=== PATIENT | female | born 1950 | race Two or more races ===

== ENCOUNTER 2017-06-15 08:49 | Outpatient (CLI) | payer OTHER | END 2017-06-15 09:10 | disposition home or self-care (01) | LOC: SONOGRAMA 08:49 | DX: E04.1 Nontoxic single thyroid nodule (principal) ==

== ENCOUNTER 2019-05-01 12:52 | Emergency (ER) | payer OTHER ==
[~2019-05-01] VITALS: Ht 160 cm; Wt 60.8 kg
[2019-05-01] MEDS ORDERED: ATACAND16 MG PO (13:30)
== END 2019-05-01 20:45 | disposition home or self-care (01) ==
LOC: ER 12:52
DX: K62.5 Hemorrhage of anus and rectum (principal)

== ENCOUNTER 2019-07-10 13:16 | Inpatient (IN) | payer OTHER ==
[~2019-07-10] VITALS: Ht 165.1 cm; Wt 56.2 kg
[~2019-07-10 13:16] MED LIST: ATACAND16 MG PO
[2019-07-10] MEDS ORDERED: SYNTHROID75 MCG PO (13:37)
[2019-07-10] MEDS ORDERED: PROTONIX PO (13:38)
[2019-07-10] MEDS ORDERED: SINGULAIR10 MG PO (13:38)
[2019-07-10] MEDS ORDERED: BONIVA150 MG PO (13:39)
[2019-07-10] MEDS ORDERED: IBRERSARTAN PO (13:39)
[2019-07-10] MEDS ORDERED: VITA D3 PO (13:40)
[2019-07-10] MEDS ORDERED: FLONASE16 GM IN (13:40)
[2019-07-10] MEDS ORDERED: PROBIOTIC PO (13:41)
[2019-07-10] MEDS ORDERED: MAGNESIUM400 MG PO (13:41)
[2019-07-10] MEDS ORDERED: CALCIUM PO (13:42)
[2019-07-14] MEDS ORDERED: TRIPLE ANTIB28.35 GM (08:28)
[2019-07-14] MEDS ORDERED: PANTOPRAZOLE SO40 MG (08:28)
[2019-07-14] MEDS ORDERED: IRBESARTAN150 MG (08:28)
[2019-07-14] MEDS ORDERED: OMEGA-3 FISH O1 EA11 (08:29)
[2019-07-14] MEDS ORDERED: VITAMIN D310000 UNIT PO (08:31)
[2019-07-14] MEDS ORDERED: CALCIUM 600 +1 EACH PO (08:32)
[2019-07-14] MEDS ORDERED: ACIDOPHILUS PR1 EACH (08:33)
[2019-07-14] MEDS ORDERED: PROTONIX40 MG (08:35)
== END 2019-07-18 10:45 | disposition home or self-care (01) | DRG 330 ==
LOC: SURH 07-14 07:00 → O/R 07-14 07:30 → SURH 07-14 07:30
PROVIDERS: ADMIT Colon & Rectal Surgery
PROC: 0DBP4ZZ Excision of Rectum, Percutaneous Endoscopic Approach (ICD-10-PCS; 2019-07-14)
PROC: 0DJD8ZZ Inspection of Lower Intestinal Tract, Via Natural or Artificial Opening Endoscopic (ICD-10-PCS; 2019-07-14)
PROC: 3E0F7GC Introduction of Other Therapeutic Substance into Respiratory Tract, Via Natural or Artificial Opening (ICD-10-PCS; 2019-07-14)
PROC: 0DBN4ZZ Excision of Sigmoid Colon, Percutaneous Endoscopic Approach (ICD-10-PCS; principal; 2019-07-14 07:00)
DX: K57.32 Diverticulitis of large intestine without perforation or abscess without bleeding (principal); D62 Acute posthemorrhagic anemia; E03.9 Hypothyroidism, unspecified; J45.20 Mild intermittent asthma, uncomplicated; M81.0 Age-related osteoporosis without current pathological fracture

== ENCOUNTER 2019-07-12 06:40 | Day surgery (SDC) | payer OTHER ==
[~2019-07-12 06:40] MED LIST changes: +BONIVA150 MG PO; +CALCIUM PO; +FLONASE16 GM IN; +IBRERSARTAN PO; +MAGNESIUM400 MG PO; +PROBIOTIC PO; +PROTONIX PO; +SINGULAIR10 MG PO; +SYNTHROID75 MCG PO; +VITA D3 PO
== END 2019-07-12 12:15 | disposition home or self-care (01) ==
LOC: AMB-ENDOS 06:40
DX: K62.89 Other specified diseases of anus and rectum (principal); K57.32 Diverticulitis of large intestine without perforation or abscess without bleeding; K64.8 Other hemorrhoids

== ENCOUNTER 2022-01-14 06:19 | Day surgery (SDC) | payer OTHER ==
[~2022-01-14 06:19] MED LIST changes: +ACIDOPHILUS PR1 EACH; +CALCIUM 600 +1 EACH PO; +IRBESARTAN150 MG; +OMEGA-3 FISH O1 EA11; +PANTOPRAZOLE SO40 MG; +PROTONIX40 MG; +TRIPLE ANTIB28.35 GM; +VITAMIN D310000 UNIT PO
== END 2022-01-14 10:35 | disposition home or self-care (01) ==
LOC: AMB-ENDOS 06:19
PROVIDERS: ATTEND Colon & Rectal Surgery
DX: K64.4 Residual hemorrhoidal skin tags (principal); Z20.822 Contact with and (suspected) exposure to COVID-19; Z88.8 Allergy status to other drugs, medicaments and biological substances; I10 Essential (primary) hypertension; E03.9 Hypothyroidism, unspecified; J45.909 Unspecified asthma, uncomplicated; K57.30 Diverticulosis of large intestine without perforation or abscess without bleeding